=== PATIENT | male | born 1955 | race Caucasian/White ===

== ENCOUNTER 2018-06-11 13:16 | Inpatient (IN) | payer OTHER ==
[~2018-06-11] VITALS: Ht 172.7 cm; Wt 80.7 kg
[~2018-06-11 13:16] MED LIST: CENTRUM1 TA1 PO; DARVON65 MG PO; FERROUS SU325 MG/TAB PO; FOLIC ACID 40400 MCG PO; VITAMIN C500 MG PO
[2018-07-29] VITALS (11 sets, daily range): BP systolic 97–142; BP diastolic 53–90; PULSE 63–80; TEMP 97.6–98
[2018-07-29] MEDS ORDERED: NORCO 325 MG-51 TAB PO (07:20)
[2018-07-29] MEDS ORDERED: METAMUCIL3.4 GM/DOS PO (07:21)
[2018-07-29] MEDS ORDERED: ADVIL200 MG PO (07:22)
[2018-07-30 00:38] VITALS: BP 137/67; PULSE 91; TEMP 98.1
[2018-07-30 04:33] VITALS: BP 135/79; PULSE 98; TEMP 98.4
[2018-07-30 06:56] LABS: HEMOGLOBIN 10.3 g/dl (13.5-18.0)
[2018-07-30 06:57] LABS: HEMATOCRIT 31.2 % (42.0-52.0)
[2018-07-30 07:30] VITALS: BP 125/73; PULSE 70; TEMP 98.5
[2018-07-30 11:15] VITALS: BP 121/65; PULSE 72; TEMP 99
[2018-07-30 16:14] VITALS: BP 131/62; PULSE 97; TEMP 98.2
[2018-07-30 21:06] VITALS: BP 118/77; PULSE 96; TEMP 98.2
[2018-07-31 01:04] VITALS: BP 131/78; PULSE 111; TEMP 98.9; TEMP 99.8
[2018-07-31 03:58] VITALS: BP 115/75; PULSE 68; TEMP 98
[2018-07-31] MEDS ORDERED: CELEBREX 200MG200 MG PO (06:46)
[2018-07-31] MEDS ORDERED: NORCO 325 MG-7.1 TAB PO (06:46)
[2018-07-31] MEDS ORDERED: ASPI325T6 PO (06:46)
[2018-07-31] MEDS ORDERED: ROXICODONE 55 MG/TAB PO (06:47)
[2018-07-31] MEDS ORDERED: TYLENOL 500MG500 MG PO (06:47)
[2018-07-31] MEDS ORDERED: COLACE 100100 MG/CAP PO (06:48)
[2018-07-31 06:50] VITALS: BP 127/74; PULSE 74; TEMP 98.8
[2018-07-31 10:50] VITALS: BP 122/74; PULSE 77; TEMP 98.4
== END 2018-07-31 14:10 | disposition home or self-care (01) | DRG 470 ==
LOC: JCC 07-29 06:46
PROVIDERS: Orthopaedic Surgery
PROC: 0SR90JA Replacement of Right Hip Joint with Synthetic Substitute, Uncemented, Open Approach (ICD-10-PCS; principal; 2018-07-29 10:30)
DX: M16.11 Unilateral primary osteoarthritis, right hip (principal); I10 Essential (primary) hypertension; F17.220 Nicotine dependence, chewing tobacco, uncomplicated; Z23 Encounter for immunization
CPT/HCPCS: A4314; A9284; C1713; C1776; J0690; J2250; J2270; J2704; J3010; J7030; J7120

== ENCOUNTER → 2018-07-18 | Outpatient (CLI) | payer OTHER ==
[~2018-07-18] MED LIST changes: -CENTRUM1 TA1 PO; +CENTRUM1 TAB PO; -FOLIC ACID 40400 MCG PO; +FOLIC ACID PO
== END ==
LOC: COL.LAB 09:25
DX: Z01.812 Encounter for preprocedural laboratory examination (principal)

== ENCOUNTER 2020-12-29 16:05 | Inpatient (IN) | payer OTHER ==
[~2020-12-29] VITALS: Ht 174 cm; Wt 85.3 kg
[~2020-12-29 16:05] MED LIST changes: +ADVIL200 MG PO; +ASPI325T6 PO; +CELEBREX 200MG200 MG PO; +CENTRUM1 TA1 PO; -CENTRUM1 TAB PO; +COLACE 100100 MG/CAP PO; +FOLIC ACID 40400 MCG PO; -FOLIC ACID PO; +METAMUCIL3.4 GM/DOS PO; +NORCO 325 MG-51 TAB PO; +NORCO 325 MG-7.1 TAB PO; +ROXICODONE 55 MG/TAB PO; +TYLENOL 500MG500 MG PO
[2021-01-18] VITALS (10 sets, daily range): BP systolic 125–148; BP diastolic 75–96; PULSE 67–97; TEMP 97.5–98
[2021-01-18] MEDS ORDERED: CELEBREX 1100 MG/CAP PO (05:53)
[2021-01-18] MEDS ORDERED: LUTEIN6 MG PO (05:54)
[2021-01-18] MEDS ORDERED: TYLENOL 500MG500 MG PO (05:54)
[2021-01-19] VITALS (7 sets, daily range): BP systolic 122–158; BP diastolic 78–91; PULSE 102–112; TEMP 96.8–98.8
[2021-01-19 06:01] LABS: HEMOGLOBIN 11.1 g/dl (13.5-18.0)
[2021-01-19 06:06] LABS: HEMATOCRIT 34.4 % (42.0-52.0)
[2021-01-20 04:32] VITALS: BP 150/80; PULSE 100; TEMP 97.3
[2021-01-20] MEDS ORDERED: ASPI325T6 PO (06:41)
[2021-01-20] MEDS ORDERED: NORCO 325 MG-51 TAB PO (06:41)
[2021-01-20] MEDS ORDERED: ROXICODONE 55 MG/TAB PO (06:42)
[2021-01-20] MEDS ORDERED: SENOKOT S 50 MG1 TAB PO (06:42)
[2021-01-20 08:06] VITALS: BP 152/80; PULSE 90; TEMP 98.6
[2021-01-20 12:13] VITALS: BP 157/90; PULSE 104; TEMP 98.3
== END 2021-01-20 12:56 | disposition home or self-care (01) | DRG 470 ==
LOC: JCC 01-18 05:19 → INPTSU 01-18 05:19 → SURG 01-18 07:30 → JCC 01-18 10:40 → SURG 01-18 11:00 → JCC 01-20 12:56
PROVIDERS: ADMIT Orthopaedic Surgery
PROC: 0SRB0JA Replacement of Left Hip Joint with Synthetic Substitute, Uncemented, Open Approach (ICD-10-PCS; principal; 2021-01-18 07:30)
DX: M16.12 Unilateral primary osteoarthritis, left hip (principal); I10 Essential (primary) hypertension; G47.33 Obstructive sleep apnea (adult) (pediatric); R26.9 Unspecified abnormalities of gait and mobility; Z20.822 Contact with and (suspected) exposure to COVID-19; Z87.891 Personal history of nicotine dependence
CPT/HCPCS: A4314; A9284; C1776; J0690; J2250; J2270; J2405; J2704; J3010; J7030; J7120

== ENCOUNTER 2021-06-15 08:36 | Inpatient (IN) | payer OTHER ==
[~2021-06-15] VITALS: Ht 174 cm; Wt 85.2 kg
[~2021-06-15 08:36] MED LIST changes: +CELEBREX 1100 MG/CAP PO; +LUTEIN6 MG PO; +SENOKOT S 50 MG1 TAB PO
[2021-06-17] VITALS (9 sets, daily range): BP systolic 115–164; BP diastolic 72–86; PULSE 76–101; TEMP 97.9–98.2
[2021-06-17 09:25] LABS: BASO # 0.1 (0.0-0.2); BASO % 0.8 % (0.0-2.0); EOS # 0.2 (0.0-0.7); EOS % 2.5 % (0-4.0); GRAN # 4.6 (1.4-6.5); GRAN % 73.2 % (42.2-75.2); HEMOGLOBIN 10.1 g/dl (13.5-18.0); LYMPH # 0.9 (1.2-3.4); LYMPH % 14.5 % (20.0-51.0); MEAN CELL VOLUME 88 fl (80.0-100.0); MEAN CORPUSCULAR HEMOGLOBIN 29 pg (27.0-31.0); MEAN CORPUSCULAR HGB CONC 33 g/dl (33.0-37.0); MEAN PLATELET VOLUME 9.8 fl (7.4-10.4); MONO # 0.6 (0.1-0.6); MONO % 8.7 % (1.7-9.3); PLATELET COUNT 247 K/mm3 (130-400); RED BLOOD COUNT 3.48 M/mm3 (4.20-5.60)
[2021-06-17 09:30] LABS: HEMATOCRIT 30.6 % (42.0-52.0)
[2021-06-17 09:33] LABS: PROTHROMBIN TIME 10.8 SECONDS (9.7-12.8)
[2021-06-17] MEDS ORDERED: CENTRUM1 TA1 PO (09:34)
[2021-06-17] MEDS ORDERED: METAMUCIL3.4 GM/Dos PO (09:34)
[2021-06-17] MEDS ORDERED: PRESERVISION1 SGL PO (09:35)
[2021-06-17 09:40] LABS: CALCIUM 8.8 mg/dL (8.4-10.2); CREATININE, serum 0.63 (0.66-1.25); POTASSIUM 4.3 mmol/L (3.4-5.0)
[2021-06-17 13:38] LABS: HEMATOCRIT 28.3 % (42.0-52.0); HEMOGLOBIN 9.3 g/dl (13.5-18.0)
--- NOTE | 2021-06-17 16:30 | NUR ---
Pt recently arrived to the floor from [facility]. He is awake although drowsy. Pt is in obvious discomfort and is restless when awake. He does occasionally calm down and quickly falls asleep. Resp around 10 when sleeping. O2 at 97% on 2L per NC even while sleeping. Occlusive dressing to his left hip, ice in place. SCDs in bilaterally. Lung sounds clear, heart rate regular. Pt rating pain 20/10. Schedule medication given
--- NOTE | 2021-06-17 17:10 | NUR ---
Pt appears to be resting more comfortably. Lowered head of bed earlier which has seemed to help. He has tolerated some ice cream, no other needs or requests at this time, call light within reach.
--- NOTE | 2021-06-17 21:40 | NUR ---
Pt has been good. Pain rated 41/0. Vs are stable. Will continue to monitor.
[2021-06-18] VITALS (7 sets, daily range): BP systolic 144–164; BP diastolic 74–88; PULSE 100–112; TEMP 97.9–99
[2021-06-18 08:32] LABS: HEMATOCRIT 27.6 % (42.0-52.0); HEMOGLOBIN 9.1 g/dl (13.5-18.0)
--- NOTE | 2021-06-18 09:37 | NUR ---
Pt. sitting up in bed right now, awake and alert. PRN pain medicine administered. Pt. reports pain is increasing at this moment. Breakfast ordered. All other AM meds administered. All other needs addressed at this time. Call light in reach.
--- NOTE | 2021-06-18 12:21 | NUR ---
The pt.'s HR and BP elevated compared to yesterday. [facility] notified and aware. No changes in orders but this RN will continue to assess BP and HR throughout the day per routine vitals. Pt. reports he is feeling good and reports minimal pain. Pt. reports he has been using the incentive spirometer and doing ROM exercises in the bed.
--- NOTE | 2021-06-18 13:36 | NUR ---
Chaplain conway and offered support with patient.
--- NOTE | 2021-06-18 16:12 | NUR ---
Plan is to return home in [place] with Digna at as care support. SW met with patient about care. Patient reports that he is healthy normally and his pcp is Dr. Beltre with last appt 6months ago. Patient shares that he uses [facility] for medications without difficulty. Patient shares the use of a walker for mobility. Paitnet rpeorts that he does not need any HOme health supports and denies trouble getting home. Educated on services through case management. WF>
--- NOTE | 2021-06-18 18:36 | NUR ---
Pt. progressing w/ plan of care and doing well. Pt. was able to work w/ PT today and walk around in the room. This RN encouarged pt. to get OOB and ambulate later this evening and pt agreed to do so. Pt. was able to ambulate w/ a steady gait and void using the toilet. Pt. has been sitting up OOB in the chair for about two hours. PRN oxy has been given twice this shift with good effect. Pt. makes needs known and has been eating and drinking well throughout the day. Needs addressed, call light and belongings in reach.
--- NOTE | 2021-06-18 21:35 | NUR ---
Pt has ok. Pain rated 2/10. PO pain meds was given. Vss. Will continue to monitor.
[2021-06-19 03:07] VITALS: BP 149/81; PULSE 105; TEMP 98.1
--- NOTE | 2021-06-19 06:49 | NUR ---
Bedside shift report complete. Pt. awake and resting in bed. Pt. denies needs at this time. Urinal emptied. Call light and belongings in reach.
[2021-06-19 08:00] VITALS: BP 134/77; PULSE 109; TEMP 98.3
[2021-06-19] MEDS ORDERED: ASPI325T6 PO (08:49)
[2021-06-19] MEDS ORDERED: CELEBREX 200MG200 MG PO (08:50)
[2021-06-19] MEDS ORDERED: ROXICODONE 55 MG/TAB PO (08:50)
[2021-06-19] MEDS ORDERED: ULTRAM 50MG TAB50 MG PO (08:51)
[2021-06-19] MEDS ORDERED: SENOKOT S 50 MG1 TAB PO (08:51)
[2021-06-19] MEDS ORDERED: FERROUS SU325 MG/TAB PO (08:52)
[2021-06-19 09:14] LABS: HEMATOCRIT 26.8 % (42.0-52.0); HEMOGLOBIN 8.8 g/dl (13.5-18.0)
--- NOTE | 2021-06-19 12:43 | NUR ---
Dileep aguilar applied to bilateral lower extremeties, thigh high. Pt.'s dressing has been changed and an aquacel dressing has been applied, per order. DANA Calix was the nurse to change the dressing. Plan for discharge today.
--- NOTE | 2021-06-19 13:30 | NUR ---
All discharge paperwork reviewed with the patient and his . IV removed, site c/d/i. Pt. verbalized understanding of discharge instructions. Pt. left unit via wheelchair w/ SHAGUFTA Jiang.
== END 2021-06-19 15:33 | disposition home or self-care (01) | DRG 467 ==
LOC: SDCO 06-17 07:30 → EDSTATUS 06-17 07:30 → INPTSU 06-17 08:35 → SDCO 06-17 10:30 → SURG 06-17 16:00
PROVIDERS: ADMIT Orthopaedic Surgery
PROC: 0SPS0JZ Removal of Synthetic Substitute from Left Hip Joint, Femoral Surface, Open Approach (ICD-10-PCS; 2021-06-17)
PROC: 0SCB0ZZ Extirpation of Matter from Left Hip Joint, Open Approach (ICD-10-PCS; 2021-06-17)
PROC: 0SRS0JZ Replacement of Left Hip Joint, Femoral Surface with Synthetic Substitute, Open Approach (ICD-10-PCS; principal; 2021-06-17 10:30)
DX: S72.92XA Unspecified fracture of left femur, initial encounter for closed fracture (principal); M97.02XA Periprosthetic fracture around internal prosthetic left hip joint, initial encounter; I10 Essential (primary) hypertension; G47.33 Obstructive sleep apnea (adult) (pediatric); Z20.822 Contact with and (suspected) exposure to COVID-19; W19.XXXA Unspecified fall, initial encounter; Z96.642 Presence of left artificial hip joint; Z79.82 Long term (current) use of aspirin
CPT/HCPCS: A4314; A9284; C1776; J0690; J1170; J2250; J2405; J2704; J3010; J7120

== ENCOUNTER → 2021-06-30 | Outpatient (CLI) | payer OTHER ==
[~2021-06-30] MED LIST changes: +METAMUCIL3.4 GM/Dos PO; +PRESERVISION1 SGL PO; +ULTRAM 50MG TAB50 MG PO
== END ==
LOC: COL.VAS 12:00
DX: M79.605 Pain in left leg (principal); M25.552 Pain in left hip; R59.0 Localized enlarged lymph nodes; R22.42 Localized swelling, mass and lump, left lower limb; Z96.642 Presence of left artificial hip joint

== ENCOUNTER 2021-11-08 08:52 | Emergency (ER) | payer OTHER ==
[~2021-11-08] VITALS: Ht 175.3 cm; Wt 81.8 kg
[2021-11-08 08:53] VITALS: TEMP 98.5
[2021-11-08] MEDS ORDERED: PERCOCET 325 MG1 TA2 PO (09:00)
[2021-11-08 10:22] LABS: BASO # 0.1 K/mm3 (0.0-0.2); BASO % 0.5 % (0.0-2.0); EOS # 0.1 K/mm3 (0.0-0.7); EOS % 1.5 % (0.0-4.0); GRAN # 7.5 K/mm3 (1.4-6.5); GRAN % 80.5 % (42.2-75.2); HEMOGLOBIN 11.8 g/dl (13.5-18.0); LYMPH # 0.7 K/mm3 (1.2-3.4); LYMPH % 7.6 % (20.0-51.0); MEAN CELL VOLUME 84 fl (80.0-100.0); MEAN CORPUSCULAR HEMOGLOBIN 28 pg (27-31); MEAN CORPUSCULAR HGB CONC 33 g/dl (33.0-37.0); MEAN PLATELET VOLUME 8.8 fl (7.4-10.4); MONO # 0.9 K/mm3 (0.1-0.6); MONO % 9.3 % (1.7-9.3); PLATELET COUNT 232 K/mm3 (130-400); RED BLOOD COUNT 4.24 M/mm3 (4.20-5.60); REDCELL DISTRIBUTION WIDTH-CV 15.6 % (11.5-14.5)
[2021-11-08 10:23] LABS: HEMATOCRIT 35.6 % (42.0-52.0)
[2021-11-08 10:42] LABS: ALBUMIN 3.4 gm/dL (3.4-4.8); BILIRUBIN,TOTAL 0.8 mg/dL (0.2-1.2); CALCIUM 8.5 mg/dL (8.4-10.2); CREATININE, serum 0.79 mg/dL (0.72-1.25); POTASSIUM 4.3 mmol/L (3.5-4.5); TOTAL PROTEIN 6.1 gm/dL (6.2-8.1)
[2021-11-08 16:47] VITALS: BP 163/96; PULSE 20
== END 2021-11-08 17:10 | disposition home or self-care (01) ==
LOC: COL.ER 08:52
PROVIDERS: Student in an Organized Health Care Education/Training Program
DX: M54.50 Low back pain, unspecified (principal); I10 Essential (primary) hypertension; X50.1XXA Overexertion from prolonged static or awkward postures, initial encounter; Y93.F2 Activity, caregiving, lifting
CPT/HCPCS: J1170

== ENCOUNTER → 2022-01-25 | Outpatient (CLI) | payer OTHER ==
[~2022-01-25] MED LIST changes: +PERCOCET 325 MG1 TA2 PO
== END ==
LOC: COL.RAD 09:16
DX: M21.242 Flexion deformity, left finger joints (principal)
CPT/HCPCS: A9575

== ENCOUNTER → 2022-03-29 | Outpatient (CLI) | payer OTHER ==
[~2022-03-29] MED LIST changes: +CLEOCIN HCL300 MG PO; +HCTZ 25MG TAB25 MG PO; +ZESTRIL 10MG10 MG PO
[2022-03-29 12:23] LABS: HEMATOCRIT 39.4 % (42.0-52.0); HEMOGLOBIN 12.2 g/dl (13.5-18.0); MEAN CELL VOLUME 80 fl (80.0-100.0); MEAN CORPUSCULAR HEMOGLOBIN 25 pg (27-31); MEAN CORPUSCULAR HGB CONC 31 g/dl (33.0-37.0); MEAN PLATELET VOLUME 8.8 fl (7.4-10.4); PLATELET COUNT 374 K/mm3 (130-400); RED BLOOD COUNT 4.91 M/mm3 (4.20-5.60); REDCELL DISTRIBUTION WIDTH-CV 15.8 % (11.5-14.5)
[2022-03-29 12:27] LABS: C-REACTIVE PROTEIN 3.24 mg/dL (0.00-0.50); CREATININE, serum 0.72 mg/dL (0.72-1.25)
[2022-03-29 12:45] LABS: ERYTHROCYTE SEDIMENTATION RATE 16 mm/hr (0-30)
== END ==
LOC: COL.LAB 11:52
PROVIDERS: Orthopaedic Surgery
DX: M25.552 Pain in left hip (principal); Z96.642 Presence of left artificial hip joint; Z47.1 Aftercare following joint replacement surgery

== ENCOUNTER 2022-04-03 09:35 | Inpatient (IN) | payer OTHER ==
--- NOTE | 2022-04-02 17:41 | NUR ---
This RN recieved phone call tonight from patient and his . States patient to be scheduled for out patient surgery with Dr. Suero tomorrow but no one has called to comfirm this or do any pre op teaching. Reported to patient and that he is on the schedule for tomorrow, 04/03, and has an arrival time of 1000. Instructed to come to the patient entrance at 0945/0950 and check in and schedule says possible overnight stay. Patient and state understading. Instructed to be NPO after midnight except small sips with medication in the morning, antibiotic and Lisinopril, hold HTCZ. Voice understanding, this RN apologetic that no one had called yet. Patient and state understanding and ok with instructions.
[2022-04-03] VITALS (11 sets, daily range): BP systolic 118–1227; BP diastolic 78–97; PULSE 91–127; TEMP 98–98.8
[~2022-04-03] VITALS: Ht 172.7 cm; Wt 76.2 kg
[~2022-04-03 09:35] MED LIST changes: -CLEOCIN HCL300 MG PO; -HCTZ 25MG TAB25 MG PO; -ZESTRIL 10MG10 MG PO
[2022-04-03] MEDS ORDERED: ZESTRIL 10MG10 MG PO (11:22)
[2022-04-03] MEDS ORDERED: CLEOCIN HCL300 MG PO (11:23)
[2022-04-03] MEDS ORDERED: HCTZ 25MG TAB25 MG PO (11:23)
--- NOTE | 2022-04-03 12:00 | NUR ---
PT ambulated to bathroom independently, without assistive devices. Then back to bed. Call grijalva remains within reach. Side rails x1. Warm blankets applied.
--- NOTE | 2022-04-03 15:31 | NUR ---
Vancomycin Initial Dosing Pharmacy Note Ordering provider: Miah Suero Indication/duration: hip infection, 42 days LABS: SCr 0.72, CrCl~84, GFR 110 Recommendation: Start Vancomycin 1.25 gm IV q12h. Pharmacy will continue to closely monitor and check a Vancomycin trough on 04/05/22. Maintenance dose: 1.25 grams every 12 hours Trough goal: 10-15 ug/mL
--- NOTE | 2022-04-03 16:25 | NUR ---
PATIENT ADMITED INTO ROOM 347 POST OP. PATIENT IS ORIENTED BUT VERY LOUD AND ANIMATED. PATIENT MAKING LOTS OF JOKES ONE MINUTE AND THEN EMOTIONAL AND CRYING THE NEXT. SISTER REPORTS THIS IS NORMAL FOR HIM, ESPECIALLY AFTER SURGERY. NOTED ELEVATED HR OF 110 WHICH WAS REPORTED IN THE LOW 100'S IN OR AND PACU. ALL OTHER VSS. NO C/O PAIN OR NAUSEA. POST OP FLUIDS INFUSING INTO RIGHT WRIST. LIQUIDS AT BEDSIDE. HEAD TO TOE ASSESSMENT COMPLETE. LEFT HIP DRESSING IS CD&I WITH FOAM DRESSING AND ICE PACK INPLACE. SCD'S TO BLE. ORIENTED TO ROOM. CALL LIGHT IN REACH. BED ALARM ON.
--- NOTE | 2022-04-03 16:40 | NUR ---
NOTIFIED HOSPITALIST OF CONSULT.
--- NOTE | 2022-04-03 17:10 | NUR ---
NOTIFIED ID OF CONSULT.
[2022-04-03 18:56] LABS: HEMOGLOBIN 10.4 g/dl (13.5-18.0); MEAN CELL VOLUME 81 fl (80.0-100.0); MEAN CORPUSCULAR HEMOGLOBIN 25 pg (27-31); MEAN CORPUSCULAR HGB CONC 30 g/dl (33.0-37.0); MEAN PLATELET VOLUME 9.4 fl (7.4-10.4); PLATELET COUNT 333 K/mm3 (130-400); RED BLOOD COUNT 4.22 M/mm3 (4.20-5.60); REDCELL DISTRIBUTION WIDTH-CV 15.9 % (11.5-14.5)
[2022-04-03 19:16] LABS: ALBUMIN 3.3 gm/dL (3.4-4.8); CALCIUM 8.8 mg/dL (8.4-10.2); CREATININE, serum 0.93 mg/dL (0.72-1.25); POTASSIUM 4.5 mmol/L (3.5-4.5); TOTAL PROTEIN 6.4 gm/dL (6.2-8.1)
[2022-04-03 19:35] LABS: HEMATOCRIT 34.3 % (42.0-52.0)
[2022-04-03 19:38] LABS: BAND 1 % (0-10); HYPOCHROMIA 3+; LYMPHOCYTE 7 % (20.0-51.0); NEUTROPHILS 91 % (42.0-75.2); PLATELET ESTIMATE NORMAL (NORMAL)
[2022-04-03 19:44] LABS: OVALOCYTES 1+
[2022-04-03 20:01] LABS: BILIRUBIN,TOTAL 0.4 mg/dL (0.2-1.2)
--- NOTE | 2022-04-04 01:33 | NUR ---
PATIENT ALERT AND ORIENTED. IN BED AT ROOM ENTRY. HS MEDS PER EMAR. DENYING PAIN. ASSISTED TO STAND AT BEDSIDE AND VOIDED IN URINAL. L HIP WITH BULKY DRESSING CDI, ICE IN PLACE. IV R WRIST WITH IVF AND INT VANC.
[2022-04-04 04:00] VITALS: BP 118/79; PULSE 110; TEMP 97.8
[2022-04-04 08:30] VITALS: BP 122/74; PULSE 106; TEMP 98.9
--- NOTE | 2022-04-04 09:56 | NUR ---
DRESSING CHANGED TO AQUACEL X2 PER ORDER. INCISION DRY AND INTACT, SOME REDNESS AND SWELLING TO TOP RIGHT AREA.
[2022-04-04 11:46] VITALS: BP 101/76; PULSE 105; TEMP 97.7
--- NOTE | 2022-04-04 11:54 | NUR ---
BRIAN met with the patient to discuss discharge plan. The patient lives in [place] with his , Digna (ph#[phone]). He reports independence with ADLs and has an upright walker. The patient's PCP is Dr. Aime Vickers and he receives his medications from [facility] in [place]. The patient's DPOA-HC is in EMR and it designates his and his sister, Roxanne. The patient plans on returning home upon discharge. The patient is going to need outpatient IV antibiotics upon discharge. Recommendations for IV antibiotics are still pending. SW discussed the option of receiving the IV antibiotics as outpatient at a hospital, like [facility] or to receive the IV antibiotics at home. The patient would like to receive the antibiotics at home. SW informed him that the infusion companies do require home health with home antibiotics and provided him with Medicare.[employer]'s list of home health agencies that serve [place]. The patient plans to look over the list. He states that his and his sister, who is an RN, will help administer the antibiotics. BRIAN contacted the patient's , Digna, and reviewed the above. Digna states that she is out of state right now, but the patient's sister plans to assist the patient with the antibiotics. Digna states that she will contact the patient and go over the home health list with him. BRIAN contacted Charlotte at [facility] to inquire if they take the patient's insurance, tu.nr. Charlotte states that they are [id number] with the patient's insurance, but there is an occasional [facility] plan they do take. She could run benefits, otherwise she recommends using [facility] in [place]. Awaiting antibiotic recommendation.
[2022-04-04 16:00] VITALS: BP 113/76; PULSE 108; TEMP 98.8
--- NOTE | 2022-04-04 18:27 | NUR ---
LEONARD IS DOING WELL WITH SCHEDULED TYLENOL DOSES. DRESSING IS DRY AND INTACT. HARRIET DOUBLE LUMEN PICC INTACT. PATIENT WITH NO COMPLAINTS AT THIS TIME. CULTURE FOR HIP STILL PENDING, PATIENT AWARE.
[2022-04-04 20:00] VITALS: BP 113/59; PULSE 115; TEMP 98
[2022-04-05] VITALS (7 sets, daily range): BP systolic 109–135; BP diastolic 67–89; PULSE 94–116; TEMP 97.9–98.5
--- NOTE | 2022-04-05 02:01 | NUR ---
PATIENT IS IN BED, ALERT AND ORIENTED. DENIES PAIN. HS MEDS PER EMAR. BULKY DRESSING TO L HIP CDI. PICC TO HARRIET. DISCUSSED WITH DR CUEVAS, ORDERS TO HOLD HYRDROCHLORATHIAZIDE AND AM BNP.
--- NOTE | 2022-04-05 08:00 | NUR ---
PATIENT IS A&O. NOTED ELEVATED HR IN THE LOW 100'S SINCE ADMISSION. ALL OTHER VSS. PATIENT REPORTS MILD DISCOMFORT IN LEFT HIP AND DENIES NEED FOR PAIN MEDS AT THIS TIME. LEFT HIP DRESSING IS CD&I WITH BULKY FOAM DSG AND ICE PACK INPLACE. BANQUET SERVER NURSE REPORTS LOTS OF OOZING FROM LLE INCISION YESTERDAY AND BULKY DSG RE-APPLIED PER ORTHO. TEDS TO BLE. SCD'S CURRENTLY OFF. POSITIVE PEDAL PULSES TO BLE. PATIENT EAT/DRINK/VOIDING SUFFICENT AMOUNTS. NO C/O N/V. RIGHT PICC LINE TO INT. AM MEDS GIVEN. HEAD TO TOE ASSESSMENT COMPLETE. PT/OT CONSULTED. NO OTHER NEEDS. CALL LIGHT IN REACH.
[2022-04-05 09:06] LABS: BASO # 0.1 K/mm3 (0.0-0.2); BASO % 0.6 % (0.0-2.0); EOS # 0.3 K/mm3 (0.0-0.7); EOS % 2.8 % (0.0-4.0); GRAN # 8.4 K/mm3 (1.4-6.5); GRAN % 77.1 % (42.2-75.2); LYMPH # 1.3 K/mm3 (1.2-3.4); LYMPH % 11.7 % (20.0-51.0); MEAN CELL VOLUME 81 fl (80.0-100.0); MEAN CORPUSCULAR HEMOGLOBIN 25 pg (27-31); MEAN CORPUSCULAR HGB CONC 30 g/dl (33.0-37.0); MEAN PLATELET VOLUME 9.2 fl (7.4-10.4); MONO # 0.8 K/mm3 (0.1-0.6); MONO % 7.5 % (1.7-9.3); PLATELET COUNT 360 K/mm3 (130-400); RED BLOOD COUNT 4.08 M/mm3 (4.20-5.60); REDCELL DISTRIBUTION WIDTH-CV 15.9 % (11.5-14.5)
[2022-04-05 09:08] LABS: HEMATOCRIT 33.2 % (42.0-52.0)
[2022-04-05 09:27] LABS: CALCIUM 8.4 mg/dL (8.4-10.2); CREATININE, serum 0.78 mg/dL (0.72-1.25); POTASSIUM 4.4 mmol/L (3.5-4.5)
--- NOTE | 2022-04-05 10:00 | NUR ---
STILL WAITING ON QING ALMONTE DRAWN THIS AM TO [facility].
--- NOTE | 2022-04-05 12:01 | NUR ---
IV antibiotic recs are still pending. BRIAN met with the patient to follow up on home health agency preference. The patient requests that SW find out what agency takes his insurance and if he would have any out of pocket costs for the service. If he has any out of pocket costs, he is considering just coming to [facility] instead. BRIAN contacted Ivana at [facility]. Ivana reports that they are not taking any new patients at this time. BRIAN contacted Angie at [facility]. Angie states that they will need to run the patient's insurance and requested that we the patient's information over to them, for them to check. BRIAN faxed a referral to Angie at [facility]. Awaiting to hear what insurance will pay and if in-network.
--- NOTE | 2022-04-05 14:20 | NUR ---
PATIENT NOW OUT OF SHOWER. LLE DRESSING WET, CHANGED HIP DRESSING AND APPLIED 4X4'S, ABD & FOAM TAPE. PATIENT TOLERATED WELL.
--- NOTE | 2022-04-05 15:49 | NUR ---
Alexa, at [facility], states that they are in-network with the patient's insurance and that the patient does not have a deductible. He would have a co-pay though of $20 max per visit.
--- NOTE | 2022-04-05 16:03 | NUR ---
BRIAN contacted Cristal at [facility] in [place] to inquire if they can check the patient's benefits without having antibiotic recommendations yet. Cristal states that they are about the only infusion company that takes that patient's insurance and that we can send the patient's information over for them to check benefits. BRIAN faxed the patient's records to Cristal at [facility] in [place].
--- NOTE | 2022-04-05 23:04 | NUR ---
PATIENT IN BED ON ROOM ENTRY. DENIES PAIN. BULKY DRESSING IN PLACE L HIP. ICE IN PLACE. HS MEDS PER EMAR. VANC TO HARRIET PICC LINE.
[2022-04-06 04:00] VITALS: BP 117/82; PULSE 73; TEMP 97.8
[2022-04-06 06:37] LABS: BASO # 0.1 K/mm3 (0.0-0.2); EOS # 0.4 K/mm3 (0.0-0.7); GRAN # 6.4 K/mm3 (1.4-6.5); GRAN % 72.6 % (42.2-75.2); HEMOGLOBIN 10.1 g/dl (13.5-18.0); LYMPH # 1.1 K/mm3 (1.2-3.4); LYMPH % 12.5 % (20.0-51.0); MEAN CELL VOLUME 81 fl (80.0-100.0); MEAN CORPUSCULAR HEMOGLOBIN 25 pg (27-31); MEAN CORPUSCULAR HGB CONC 30 g/dl (33.0-37.0); MEAN PLATELET VOLUME 9.9 fl (7.4-10.4); MONO # 0.7 K/mm3 (0.1-0.6); MONO % 8.4 % (1.7-9.3); PLATELET COUNT 372 K/mm3 (130-400); RED BLOOD COUNT 4.12 M/mm3 (4.20-5.60); REDCELL DISTRIBUTION WIDTH-CV 15.9 % (11.5-14.5)
[2022-04-06 06:40] LABS: HEMATOCRIT 33.5 % (42.0-52.0)
[2022-04-06 07:01] LABS: CALCIUM 8.4 mg/dL (8.4-10.2); CREATININE, serum 0.75 mg/dL (0.72-1.25); POTASSIUM 4.3 mmol/L (3.5-4.5)
[2022-04-06 07:32] VITALS: BP 118/72; PULSE 104; TEMP 97.9
--- NOTE | 2022-04-06 08:00 | NUR ---
Patient sitting up in bed, A&Ox4. VSS. IV CDI. LF hip incision dressing CDI. Denies pain and discomfort. Independent with feeds and urinal. Call light within reach
--- NOTE | 2022-04-06 10:59 | NUR ---
ID finalized their recommendations for antibiotics. The recommendation is IV Invanz daily for 6 weeks. BRIAN contacted and updated Cristal at [facility] in [place]. Cristal states that she never received the fax with the patient's information yesterday. BRIAN refaxed the patient's information and ID's recommendation to [facility]. Awaiting to hear back on benefits and if any [id number] costs. BRIAN met with the patient to update on the above and on the co-pay of max $20 per visit for home health. The patient is agreeable to paying the $20. He is hopeful he can go home soon. Will await to hear back from [facility].
[2022-04-06] MEDS ORDERED: INVANZ INJ1 G/VIAL IV ×2 (11:40→13:37)
[2022-04-06 12:00] VITALS: BP 122/84; PULSE 101; TEMP 98.9
[2022-04-06] MEDS ORDERED: COREG 6.256.25 MG/TA PO (13:33)
[2022-04-06] MEDS ORDERED: JARDIANCE10 PO (13:33)
[2022-04-06] MEDS ORDERED: ASPI325T6 PO (13:33)
--- NOTE | 2022-04-06 13:46 | NUR ---
BRIAN received phone call from the patient's sister Essence ([phone]). She states she is going to be the one picking the patient up today and was asking about the patient's therapy schedule. Informed her that at this time the patient is being established with [facility] and Iv antibiotics.
--- NOTE | 2022-04-06 14:32 | NUR ---
BRIAN contacted Cristal at [facility] to follow up about the antibiotics. Cristal states that she has already reached out to the patient and went over prices with him. Cristal states that the patient has already reached his deductible and would just owe $31.99, until covered at 100%. The patient was okay with his and Cristal states that the patient antibiotics will be delivered to his home tomorrow. BRIAN met with the patient and reviewed the above. The patient confirmed he is fine with paying and having the gtz-[id number] cost. BRIAN updated Alexa at [facility]. Alexa states that they are able to accept the patient for services. BRIAN contacted the patient's sister, Roxanne, and updated her on the above. She requested the phone numbers for [facility] and [facility]. BRIAN provided the numbers to Roxanne. Roxanne confirms that she will assist the patient with the IV antibiotics. The patient is to discharge back home today, 04/06, with home health services for intermediate/PT/OT and wound care from [facility] and home IV antibiotics. BRIAN notified and faxed orders to Alexa at [facility]. No additional needs at this time.
--- NOTE | 2022-04-06 15:49 | NUR ---
Discharge paperwork reviewed with the patient and sister. Patient verbalized an understanding to follow doctors orders. PICC in place, CDI. PICC line orders with the patient. Patient ambulated independently with wheeled walker to patient entrance. No further needs expressed.
== END 2022-04-06 15:50 | disposition home health service (06) | DRG 466 ==
LOC: SDCO 09:35 → SURG 15:09
PROVIDERS: Physician Assistant; Student in an Organized Health Care Education/Training Program; ADMIT Orthopaedic Surgery
PROC: 0SPS0JZ Removal of Synthetic Substitute from Left Hip Joint, Femoral Surface, Open Approach (ICD-10-PCS; 2022-04-03)
PROC: 0SPB09Z Removal of Liner from Left Hip Joint, Open Approach (ICD-10-PCS; 2022-04-03)
PROC: 0SUE09Z Supplement Left Hip Joint, Acetabular Surface with Liner, Open Approach (ICD-10-PCS; 2022-04-03)
PROC: 0S9B0ZX Drainage of Left Hip Joint, Open Approach, Diagnostic (ICD-10-PCS; 2022-04-03)
PROC: 0SRS03Z Replacement of Left Hip Joint, Femoral Surface with Ceramic Synthetic Substitute, Open Approach (ICD-10-PCS; principal; 2022-04-03 12:45)
PROC: 02HV33Z Insertion of Infusion Device into Superior Vena Cava, Percutaneous Approach (ICD-10-PCS; 2022-04-04)
DX: T84.52XA Infection and inflammatory reaction due to internal left hip prosthesis, initial encounter (principal); I50.21 Acute systolic (congestive) heart failure; L02.416 Cutaneous abscess of left lower limb; I10 Essential (primary) hypertension; B95.4 Other streptococcus as the cause of diseases classified elsewhere; D64.9 Anemia, unspecified; I11.0 Hypertensive heart disease with heart failure; I08.1 Rheumatic disorders of both mitral and tricuspid valves; Z96.643 Presence of artificial hip joint, bilateral; Z87.891 Personal history of nicotine dependence; Z72.89 Other problems related to lifestyle
CPT/HCPCS: 99222; 99232-AI; 99233-AI; A9270; A9284; C1751; C1776; J2405; J2550; J3010; J3370; J7030; J7050; J7120; P9047

== ENCOUNTER 2022-12-13 10:12 | Day surgery (SDC) | payer MEDICARE, OTHER ==
[~2022-12-13] VITALS: Ht 172.7 cm; Wt 76.8 kg
[~2022-12-13 10:12] MED LIST changes: +CLEOCIN HCL300 MG PO; +COREG 6.256.25 MG/TA PO; +HCTZ 25MG TAB25 MG PO; +INVANZ INJ1 G/VIAL IV; +JARDIANCE10 PO; +ZESTRIL 10MG10 MG PO
[2022-12-13] MEDS ORDERED: COREG 3.123.125 MG/T PO (10:58)
[2022-12-13] MEDS ORDERED: ENTRESTO 24 MG1 EACH PO (10:59)
[2022-12-13] MEDS ORDERED: AMOXICILLIN 8751 TAB PO (11:00)
[2022-12-13] MEDS ORDERED: ZOLOFT 25MG25 MG PO (11:01)
[2022-12-13 12:07] VITALS: BP 132/75; PULSE 91; TEMP 98
[2022-12-13] MEDS ORDERED: NORCO 325 MG-51 TAB PO (12:53)
[2022-12-13 15:15] VITALS: BP 119/70; PULSE 83; TEMP 98
[2022-12-13 15:30] VITALS: BP 107/68; PULSE 80
[2022-12-13 15:43] VITALS: TEMP 97.3
[2022-12-13 15:45] VITALS: BP 125/63; PULSE 79
[2022-12-13 16:00] VITALS: BP 124/67; PULSE 80
--- NOTE | 2022-12-13 16:54 | NUR ---
PT TO [facility] FROM PACU S/P ROBOTIC BILAT INGUINAL HERNIA REPAIR, 3 INCSION SITES COVERED WITH BANDAIDS, CDI. A&O, NAD, VSS ON RA, C/O MILD ABDOMINAL PAIN, IMPROVED AFTER 50 FENTANYL GIVEN IN PACU. TOLERATING PO. BROUGHT TO BEDSIDE. PT UPDATED ON SDC AND D/C PLAN - AGREEABLE. CALL LIGHT IN REACH, ON MONITOR, BED LOW AND LOCKED. PROVIDED ICE CREAM AND JUICE -TOLERATING WELL, DISCOMFORT IMPROVED AFTER PO, HOWEVER INCREASED PRIOR TO D/C HOME - MEDICATED NOTED. PT REMAINS A&O, NAD, WITH STABLE VITALS THRU OUT STAY IN [facility]. IV D/C'D PRIOR TO D/C. D/C INSTRUCTIONS AND F/U APPT REVIEWED AND HANDED TO PT. DRIVING HOME. PT TAKEN TO ED EXIT VIA WC WITH ALL BELONGINGS AND PAPERWORK IN HAND. ASSISTED INTO PASSENGER SIDE OF POV. REMAINS STABLE NOTED ABOVE AND WITHOUT COMPLAINT. ALL QUESTIONS AND CONCERNS ADDRESSED TO PT/FAMILY SATISFACTION. BANDAGED REMAIN CDI.
== END 2022-12-13 16:15 | disposition home or self-care (01) ==
LOC: SDCO 10:12
DX: K40.20 Bilateral inguinal hernia, without obstruction or gangrene, not specified as recurrent (principal); I50.9 Heart failure, unspecified; F17.290 Nicotine dependence, other tobacco product, uncomplicated
CPT/HCPCS: C1781; J1100; J2405; J3010; J7120